=== PATIENT | male | born 1960 | race African-American/Black ===

== ENCOUNTER 2018-04-26 18:18 | Emergency (ER) | payer MEDICAID, OTHER ==
[~2018-04-26] VITALS: Ht 185.4 cm; Wt 91.0 kg
[2018-04-26 21:07] LABS: BASOPHILS % 1.6 % (0.0-2.0); EOSINOPHILS % 1.3 % (0.0-5.0); HEMATOCRIT. 30.9 % (42.0-52.0); HEMOGLOBIN. 9.8 g/dL (14.0-18.0); MEAN CORPUSCULAR HEMOGLOBIN 25.6 pg (28.0-32.0); MEAN CORPUSCULAR VOLUME 80.6 fL (80.0-94.0); MEAN PLATELET VOLUME 8.5 fl (7.4-10.4); MONOCYTES % 8.3 % (2.0-8.0); NEUTROPHILS % 52.8 % (40.0-76.0); PLATELET 112 x1000/uL (130-400); RED BLOOD CELL COUNT 3.83 mill/uL (4.7-6.1); RED CELL DISTRIBUTION WIDTH 16.8 % (11.6-14.6)
[2018-04-26 21:11] LABS: CHLORIDE 109 mEq/L (98-107)
[2018-04-26 21:13] LABS: INR 1.1; PARTIAL THROMBOPLASTIN TIME 29.6 sec (23.4-31.0)
[2018-04-26 21:25] LABS: ETHANOL BLOOD 305 mg/dL
[2018-04-27 02:45] LABS: CLARITY URINE CLEAR (CLEAR); COLOR URINE YELLOW (YELLOW); KETONES URINE TRACE (NEGATIVE); LEUKOCYTE ESTERASE URINE NEGATIVE (NEGATIVE); NITRITE URINE NEGATIVE (NEGATIVE); OCCULT BLOOD URINE 2+ (NEGATIVE); PROTEIN URINE 3+ (NEGATIVE); SPECIFIC GRAVITY URINE 1.017 (1.005-1.030)
[2018-04-27 03:01] LABS: *AMPHETAMINES SCREEN URINE NEGATIVE (NEGATIVE); *BARBITURATES SCREEN URINE NEGATIVE (NEGATIVE)
[2018-04-27 03:02] LABS: *BENZODIAZEPINES SCREEN URINE NEGATIVE (NEGATIVE); *COCAINE SCREEN URINE NEGATIVE (NEGATIVE); CANNABINOID URINE SCREEN PRESUMTIVE POSITIVE (NEGATIVE); METHADONE URINE SCREEN NEGATIVE (NEGATIVE); OPIATES URINE SCREEN NEGATIVE (NEGATIVE); PHENCYCLIDINE URINE SCREEN NEGATIVE (NEGATIVE)
[2018-04-27] MEDS ORDERED: NITROGLYCERIN OINT 1GM/INCH UDPKT TD ONE (03:45)
[2018-04-27] MEDS ORDERED: ASPIRIN 81MG TABLET PO ONE (03:45)
[2018-04-27] MEDS ORDERED: SODIUM CHLORIDE 0.9% 1,000 ML IV ONE (04:08)
[2018-04-27 04:45] LABS: BASOPHILS % 1.7 % (0.0-2.0); EOSINOPHILS % 1.4 % (0.0-5.0); HEMATOCRIT. 32.2 % (42.0-52.0); HEMOGLOBIN. 10.3 g/dL (14.0-18.0); LYMPHOCYTES % 34.3 % (20.0-50.0); MEAN CORPUSCULAR HEMOGLOBIN 25.6 pg (28.0-32.0); MEAN CORPUSCULAR VOLUME 80.2 fL (80.0-94.0); MEAN PLATELET VOLUME 8.9 fl (7.4-10.4); MONOCYTES % 5.7 % (2.0-8.0); NEUTROPHILS % 56.9 % (40.0-76.0); PLATELET 103 x1000/uL (130-400); RED BLOOD CELL COUNT 4.02 mill/uL (4.7-6.1); RED CELL DISTRIBUTION WIDTH 16.5 % (11.6-14.6)
[2018-04-27 04:53] LABS: CHLORIDE 104 mEq/L (98-107)
[2018-04-27 04:57] LABS: ETHANOL BLOOD 156 mg/dL
[2018-04-27 05:01] LABS: INR 1.1; PROTHROMBIN TIME 11.2 sec (9.4-11.6)
[2018-04-27 06:39] VITALS: BP 150/60
== END 2018-04-27 04:43 | disposition home or self-care (01) ==
LOC: ER 18:18
DX: T51.91XA Toxic effect of unspecified alcohol, accidental (unintentional), initial encounter (principal); I11.0 Hypertensive heart disease with heart failure; I50.9 Heart failure, unspecified; E11.9 Type 2 diabetes mellitus without complications; F17.200 Nicotine dependence, unspecified, uncomplicated; F12.10 Cannabis abuse, uncomplicated; Z86.73 Personal history of transient ischemic attack (TIA), and cerebral infarction without residual deficits; Z79.899 Other long term (current) drug therapy; Y92.89 Other specified places as the place of occurrence of the external cause
CPT/HCPCS: 36415; 71045; 74176; 80053; 80305; 81003; 83605; 83690; 83880; 84484; 85025; 85610; 85730; 87040; 87086; 93005; 93970; 99285; G0482

== ENCOUNTER 2019-10-15 17:03 | Inpatient (IN) | payer MEDICAID ==
[~2019-10-15] VITALS: Ht 177.8 cm; Wt 94.9 kg
[2019-10-15] VITALS (12 sets, daily range): BP systolic 82–138; BP diastolic 57–98
[2019-10-15] MEDS ORDERED: ONDANSETRON HCL 4MG/2ML INJ IV STA (17:36)
[2019-10-15] MEDS ORDERED: SODIUM CHLORIDE 0.9% 1,000 ML IV ONE (17:36)
[2019-10-15] MEDS ORDERED: LEVETIRACETAM 1000MG/100ML 100 ML IV ONE (17:45)
[2019-10-15 18:04] LABS: BG DEOXYHEMOGLOBIN 6.6 % (0.0-5.0); BG FRACTION INSPIRED OXYGEN 100; BG HCO3 ACT 21.5 mmol/L (22.0-26.0); BG METHEMOGLOBIN 0.2 % (0.0-1.5); BG OXYGEN SATURATION 93.3 % (92.0-98.5); BG OXYHEMOGLOBIN 91.2 % (94.0-97.0); BG PCO2 40.7 mmHg (35.0-45.0); BG PH 7.341 (7.350-7.450); BG PO2 73.1 mmHg (75.0-100.0); BG SAMPLE SITE LEFT BRACHIAL; BG TOTAL HEMOGLOBIN 11.8 g/dL (12.0-18.0); BG VENT MODE MASK - NRB
[2019-10-15 18:13] LABS: BASOPHILS % 0.5 % (0.0-2.0); EOSINOPHILS % 0.2 % (0.0-5.0); HEMOGLOBIN. 11.2 g/dL (14.0-18.0); LYMPHOCYTES % 9.4 % (20.0-50.0); MEAN CORPUSCULAR HEMOGLOBIN 26.8 pg (28.0-32.0); MEAN CORPUSCULAR VOLUME 84.1 fL (80.0-94.0); MEAN PLATELET VOLUME 9.3 fl (7.4-10.4); MONOCYTES % 4.7 % (2.0-8.0); NEUTROPHILS % 85.2 % (40.0-76.0); PLATELET 93 x1000/uL (130-400); RED BLOOD CELL COUNT 4.16 mill/uL (4.7-6.1)
[2019-10-15] MEDS ORDERED: LORAZEPAM 2MG/ML CPJ IV ONE ×3 (18:15→20:15)
[2019-10-15] MEDS ORDERED: PROPOFOL 10MG/ML 100ML 100 ML IV SCH (18:15)
[2019-10-15] MEDS ORDERED: LORAZEPAM 2MG/ML CPJ ONE ×4 (18:17→20:21)
[2019-10-15 18:20] LABS: CHLORIDE 107 mEq/L (98-107)
[2019-10-15 18:25] LABS: ETHANOL BLOOD < 10 mg/dL
[2019-10-15] MEDS ORDERED: MIDAZOLAM HCL 50 MG in DEXTROSE 5% WATER 40 ML IV ONE (18:45)
[2019-10-15] MEDS ORDERED: MIDAZOLAM HCL 50 MG in DEXTROSE 5% WATER 40 ML IV PRN (19:00)
[2019-10-15 19:09] LABS: CLARITY URINE CLEAR (CLEAR); COLOR URINE YELLOW (YELLOW); KETONES URINE TRACE (NEGATIVE); LEUKOCYTE ESTERASE URINE TRACE (NEGATIVE); NITRITE URINE NEGATIVE (NEGATIVE); OCCULT BLOOD URINE 2+ (NEGATIVE); PH URINE 6.5 (4.5-8.0); PROTEIN URINE 3+ (NEGATIVE); SPECIFIC GRAVITY URINE 1.017 (1.005-1.030)
[2019-10-15 19:18] LABS: *AMPHETAMINES SCREEN URINE NEGATIVE (NEGATIVE); *BARBITURATES SCREEN URINE NEGATIVE (NEGATIVE); *BENZODIAZEPINES SCREEN URINE PRESUMTIVE POSITIVE (NEGATIVE); *COCAINE SCREEN URINE NEGATIVE (NEGATIVE); METHADONE URINE SCREEN NEGATIVE (NEGATIVE)
[2019-10-15 19:19] LABS: CANNABINOID URINE SCREEN PRESUMTIVE POSITIVE (NEGATIVE); OPIATES URINE SCREEN NEGATIVE (NEGATIVE); PHENCYCLIDINE URINE SCREEN NEGATIVE (NEGATIVE)
[2019-10-15] MEDS ORDERED: FENTANYL CITRATE/PF 1,000 MCG in SODIUM CHLORIDE 0.9% 80 ML IV PRN ×2 (19:45→20:00)
[2019-10-15 20:58] LABS: BG BASE EXCESS -1.9 mmol/L (-2.0-2.0); BG CARBOXYHEMOGLOBIN 0.7 % (0.5-1.5); BG DEOXYHEMOGLOBIN 4.8 % (0.0-5.0); BG FRACTION INSPIRED OXYGEN 100; BG HCO3 ACT 23.5 mmol/L (22.0-26.0); BG METHEMOGLOBIN 0.2 % (0.0-1.5); BG OXYGEN SATURATION 95.2 % (92.0-98.5); BG OXYHEMOGLOBIN 94.3 % (94.0-97.0); BG PCO2 42.4 mmHg (35.0-45.0); BG PH 7.362 (7.350-7.450); BG PO2 82.5 mmHg (75.0-100.0); BG SAMPLE SITE RIGHT RADIAL; BG TIDAL VOLUME(mL) 500 mL; BG TOTAL HEMOGLOBIN 12.7 g/dL (12.0-18.0); BG VENT MODE VENT - A/C; BG VENT RATE 16 set
[2019-10-15] MEDS ORDERED: ACETAMINOPHEN 650MG/20.3ML UDC PO PRN (21:45)
[2019-10-15] MEDS ORDERED: ONDANSETRON HCL 4MG/2ML INJ IV PRN (21:45)
[2019-10-15] MEDS ORDERED: DEXTROSE 50% WATER 50ML SYRINGE IV PRN (21:45)
[2019-10-15] MEDS: DEXT 5%/0.9% NACL 1,000 ML IV SCH (22:59)
[2019-10-15] MEDS: PIPERACILLIN/TAZOBACTAM 3.375 G in DEXT 5% WATER 100 ML IV SCH (23:00)
[2019-10-15] MEDS ORDERED: LEVETIRACETAM 1,000 MG in SODIUM CHLORIDE 0.9% 100 ML IV SCH (23:00)
[2019-10-15] MEDS: BLOOD SUGAR DIAGNOSTIC STRIP TEST SCH (23:18)
[2019-10-15] MEDS ORDERED: IOHEXOL-350 100 ML BOTTLE ONE (23:25)
[2019-10-16] VITALS (96 sets, daily range): BP systolic 84–128; BP diastolic 54–84
[2019-10-16] MEDS: PHENYLEPHRINE 40 MG in DEXT 5% WATER 246 ML IV PRN (00:34)
[2019-10-16] MEDS: PROPOFOL 10MG/ML 100ML 100 ML IV PRN ×2 (00:35→04:49)
[2019-10-16] MEDS: MIDAZOLAM HCL 100 MG in DEXT 5% WATER 80 ML IV SCH (04:49)
[2019-10-16 04:57] LABS: BASOPHILS % 0.3 % (0.0-2.0); EOSINOPHILS % 0.1 % (0.0-5.0); HEMATOCRIT. 33.1 % (42.0-52.0); HEMOGLOBIN. 10.5 g/dL (14.0-18.0); MEAN CORPUSCULAR HEMOGLOBIN 26.6 pg (28.0-32.0); MEAN CORPUSCULAR VOLUME 83.8 fL (80.0-94.0); MEAN PLATELET VOLUME 9.8 fl (7.4-10.4); MONOCYTES % 5.9 % (2.0-8.0); NEUTROPHILS % 85.7 % (40.0-76.0); PLATELET 95 x1000/uL (130-400); RED BLOOD CELL COUNT 3.95 mill/uL (4.7-6.1); RED CELL DISTRIBUTION WIDTH 17.5 % (11.6-14.6)
[2019-10-16] MEDS: DEXT 5%/0.9% NACL 1,000 ML IV SCH ×2 (06:41→14:00)
[2019-10-16] MEDS: PIPERACILLIN/TAZOBACTAM 3.375 G in DEXT 5% WATER 100 ML IV SCH ×3 (06:41→21:47)
[2019-10-16] MEDS: BLOOD SUGAR DIAGNOSTIC STRIP TEST SCH ×4 (06:42→23:45)
[2019-10-16] MEDS: INSULIN LISPRO 100 UNITS/ML SUBCUT SCH ×4 (07:30→23:45)
[2019-10-16 07:38] LABS: BG BASE EXCESS -1.4 mmol/L (-2.0-2.0); BG CARBOXYHEMOGLOBIN 0.1 % (0.5-1.5); BG DEOXYHEMOGLOBIN 0.7 % (0.0-5.0); BG HCO3 ACT 23.5 mmol/L (22.0-26.0); BG METHEMOGLOBIN 0.1 % (0.0-1.5); BG OXYGEN SATURATION 99.3 % (92.0-98.5); BG OXYHEMOGLOBIN 99.1 % (94.0-97.0); BG PCO2 40.5 mmHg (35.0-45.0); BG PH 7.382 (7.350-7.450); BG PO2 233.7 mmHg (75.0-100.0); BG SAMPLE SITE RIGHT BRACHIAL; BG TIDAL VOLUME(mL) 500 mL; BG TOTAL HEMOGLOBIN 11.4 g/dL (12.0-18.0); BG VENT MODE VENT - A/C; BG VENT RATE 16 set
[2019-10-16] MEDS ORDERED: INSULIN LISPRO 100 UNITS/ML SUBCUT SCH (08:20)
[2019-10-16] MEDS: LEVETIRACETAM 500MG PREMIX 100 ML IV SCH ×2 (09:00→20:48)
[2019-10-16] MEDS: FENTANYL CITRATE/PF 1,000 MCG in SODIUM CHLORIDE 0.9% 80 ML IV PRN ×2 (12:00→21:08)
[2019-10-16] MEDS ORDERED: FOLIC ACID 1 MG, THIAMINE HCL 100 MG, MVI, ADULT NO.1 10 ML in DEXTROSE 5% WATER 1,000 ML IV ONE ×4 (15:00)
[2019-10-17] VITALS (92 sets, daily range): BP systolic 94–151; BP diastolic 57–109
[2019-10-17] MEDS: DEXT 5%/0.9% NACL 1,000 ML IV SCH ×2 (03:42→17:00)
[2019-10-17] MEDS: BLOOD SUGAR DIAGNOSTIC STRIP TEST SCH ×4 (05:22→23:27)
[2019-10-17] MEDS: INSULIN LISPRO 100 UNITS/ML SUBCUT SCH ×4 (05:22→23:28)
[2019-10-17] MEDS: PIPERACILLIN/TAZOBACTAM 3.375 G in DEXT 5% WATER 100 ML IV SCH ×3 (05:45→22:13)
[2019-10-17] MEDS: MIDAZOLAM HCL 100 MG in DEXT 5% WATER 80 ML IV SCH ×2 (07:03→16:50)
[2019-10-17] MEDS: LEVETIRACETAM 500MG PREMIX 100 ML IV SCH (08:09)
[2019-10-17] MEDS: MULTIVITAMINS,THER W-MINERALS TABLET PO SCH (12:15)
[2019-10-17] MEDS: FENTANYL CITRATE/PF 1,000 MCG in SODIUM CHLORIDE 0.9% 80 ML IV PRN ×2 (12:29→22:46)
[2019-10-17] MEDS: FOLIC ACID 1MG TABLET PO SCH (13:43)
[2019-10-17] MEDS: THIAMINE HCL 100MG TABLET PO SCH (13:43)
[2019-10-17] MEDS: LEVETIRACETAM 1,000 MG in SODIUM CHLORIDE 0.9% 100 ML IV SCH (21:02)
[2019-10-18] VITALS (106 sets, daily range): BP systolic 102–236; BP diastolic 39–179
[2019-10-18] MEDS: MIDAZOLAM HCL 100 MG in DEXT 5% WATER 80 ML IV SCH ×2 (02:44→18:55)
[2019-10-18] MEDS: DEXT 5%/0.9% NACL 1,000 ML IV SCH ×3 (04:59→19:38)
[2019-10-18] MEDS: BLOOD SUGAR DIAGNOSTIC STRIP TEST SCH ×3 (05:00→18:00)
[2019-10-18] MEDS: PIPERACILLIN/TAZOBACTAM 3.375 G in DEXT 5% WATER 100 ML IV SCH ×3 (05:00→22:30)
[2019-10-18] MEDS: INSULIN LISPRO 100 UNITS/ML SUBCUT SCH ×3 (05:11→18:00)
[2019-10-18 06:27] LABS: BASOPHILS % 0.4 % (0.0-2.0); EOSINOPHILS % 1.9 % (0.0-5.0); HEMATOCRIT. 29.4 % (42.0-52.0); HEMOGLOBIN. 9.2 g/dL (14.0-18.0); LYMPHOCYTES % 11.9 % (20.0-50.0); MEAN CORPUSCULAR HEMOGLOBIN 26.9 pg (28.0-32.0); MEAN CORPUSCULAR VOLUME 85.5 fL (80.0-94.0); MEAN PLATELET VOLUME 9.7 fl (7.4-10.4); MONOCYTES % 4.6 % (2.0-8.0); NEUTROPHILS % 81.2 % (40.0-76.0); PLATELET 69 x1000/uL (130-400); RED BLOOD CELL COUNT 3.44 mill/uL (4.7-6.1); RED CELL DISTRIBUTION WIDTH 17.4 % (11.6-14.6)
[2019-10-18 06:49] LABS: CHLORIDE 111 mEq/L (98-107)
[2019-10-18] MEDS: FENTANYL CITRATE/PF 1,000 MCG in SODIUM CHLORIDE 0.9% 80 ML IV PRN ×2 (06:55→23:55)
[2019-10-18] MEDS: FOLIC ACID 1MG TABLET PO SCH (09:02)
[2019-10-18] MEDS: THIAMINE HCL 100MG TABLET PO SCH (09:03)
[2019-10-18] MEDS: LEVETIRACETAM 1,000 MG in SODIUM CHLORIDE 0.9% 100 ML IV SCH ×2 (09:03→20:09)
[2019-10-18] MEDS: MULTIVITAMINS,THER W-MINERALS TABLET PO SCH (09:03)
[2019-10-18] MEDS: PANTOPRAZOLE SODIUM 40 MG/VIAL IV SCH (09:03)
[2019-10-18 10:44] LABS: BG BASE EXCESS -0.3 mmol/L (-2.0-2.0); BG CARBOXYHEMOGLOBIN 0.5 % (0.5-1.5); BG FRACTION INSPIRED OXYGEN 60; BG HCO3 ACT 25.2 mmol/L (22.0-26.0); BG METHEMOGLOBIN 0.4 % (0.0-1.5); BG OXYHEMOGLOBIN 98.1 % (94.0-97.0); BG PCO2 44.6 mmHg (35.0-45.0); BG PO2 154.1 mmHg (75.0-100.0); BG SAMPLE SITE RIGHT RADIAL; BG TIDAL VOLUME(mL) 500 mL; BG TOTAL HEMOGLOBIN 11.2 g/dL (12.0-18.0); BG VENT MODE VENT - A/C; BG VENT RATE 16 set
[2019-10-18 16:00] LABS: BG BASE EXCESS -2.2 mmol/L (-2.0-2.0); BG CARBOXYHEMOGLOBIN 0.4 % (0.5-1.5); BG DEOXYHEMOGLOBIN 5.1 % (0.0-5.0); BG FRACTION INSPIRED OXYGEN 50; BG HCO3 ACT 23.3 mmol/L (22.0-26.0); BG METHEMOGLOBIN 0.2 % (0.0-1.5); BG OXYGEN SATURATION 94.9 % (92.0-98.5); BG OXYHEMOGLOBIN 94.3 % (94.0-97.0); BG PCO2 42.5 mmHg (35.0-45.0); BG PH 7.356 (7.350-7.450); BG PO2 79.3 mmHg (75.0-100.0); BG PRESSURE SUPPORT 10; BG SAMPLE SITE RIGHT RADIAL; BG TIDAL VOLUME(mL) 500 mL; BG TOTAL HEMOGLOBIN 10.3 g/dL (12.0-18.0); BG VENT MODE VENT - SIMV; BG VENT RATE 8 set
[2019-10-18 17:20] LABS: BG BASE EXCESS -0.8 mmol/L (-2.0-2.0); BG CARBOXYHEMOGLOBIN 0.2 % (0.5-1.5); BG FRACTION INSPIRED OXYGEN 50; BG HCO3 ACT 24.6 mmol/L (22.0-26.0); BG METHEMOGLOBIN 0.3 % (0.0-1.5); BG OXYHEMOGLOBIN 91.5 % (94.0-97.0); BG PCO2 44.1 mmHg (35.0-45.0); BG PH 7.365 (7.350-7.450); BG PO2 65.5 mmHg (75.0-100.0); BG PRESSURE SUPPORT 10; BG SAMPLE SITE RIGHT RADIAL; BG TOTAL HEMOGLOBIN 10.5 g/dL (12.0-18.0); BG VENT MODE VENT - CPAP
[2019-10-18] MEDS ORDERED: HALOPERIDOL LACTATE 5MG/ML VIAL IM PRN (20:45)
[2019-10-18] MEDS ORDERED: SUCCINYLCHOLINE CHLORIDE 200MG/10ML IV ONE (21:00)
[2019-10-18] MEDS ORDERED: ETOMIDATE 2MG/ML 10ML VIAL IV ONE (21:00)
[2019-10-18] MEDS ORDERED: SODIUM CHLORIDE 0.9% 10ML VIAL ONE (21:00)
[2019-10-18] MEDS: PHENYLEPHRINE 40 MG in DEXT 5% WATER 246 ML IV PRN (22:51)
[2019-10-18 22:54] LABS: HEMATOCRIT 32.3 % (42.0-52.0); HEMOGLOBIN 9.9 g/dL (14.0-18.0); MEAN CORPUSCULAR HEMOGLOBIN 26.7 pg (28.0-32.0); MEAN CORPUSCULAR VOLUME 87.2 fL (80.0-94.0); PLATELET 87 x1000/uL (130-400); RED CELL DISTRIBUTION WIDTH 17.4 % (11.6-14.6)
[2019-10-18 22:58] LABS: CHLORIDE 109 mEq/L (98-107)
[2019-10-18 22:59] LABS: BG BASE EXCESS -5.3 mmol/L (-2.0-2.0); BG CARBOXYHEMOGLOBIN 0.4 % (0.5-1.5); BG DEOXYHEMOGLOBIN 12.5 % (0.0-5.0); BG FRACTION INSPIRED OXYGEN 100; BG HCO3 ACT 21.5 mmol/L (22.0-26.0); BG METHEMOGLOBIN 0.2 % (0.0-1.5); BG OXYGEN SATURATION 87.4 % (92.0-98.5); BG OXYHEMOGLOBIN 86.9 % (94.0-97.0); BG PCO2 47.3 mmHg (35.0-45.0); BG PEEP (cmH2O) 0 cmH2O; BG PH 7.276 (7.350-7.450); BG PO2 59.5 mmHg (75.0-100.0); BG SAMPLE SITE RIGHT RADIAL; BG TIDAL VOLUME(mL) 500 mL; BG TOTAL HEMOGLOBIN 11.6 g/dL (12.0-18.0); BG VENT MODE VENT - A/C; BG VENT RATE 16 set
[2019-10-19] VITALS (77 sets, daily range): BP systolic 89–141; BP diastolic 42–96
[2019-10-19] MEDS: INSULIN LISPRO 100 UNITS/ML SUBCUT SCH ×5 (01:16→18:49)
[2019-10-19] MEDS: MIDAZOLAM HCL 100 MG in DEXT 5% WATER 80 ML IV SCH ×2 (04:19→14:24)
[2019-10-19] MEDS: PIPERACILLIN/TAZOBACTAM 3.375 G in DEXT 5% WATER 100 ML IV SCH (05:49)
[2019-10-19] MEDS: BLOOD SUGAR DIAGNOSTIC STRIP TEST SCH ×4 (05:49→18:50)
[2019-10-19 06:31] LABS: HEMATOCRIT. 30.7 % (42.0-52.0); HEMOGLOBIN. 9.6 g/dL (14.0-18.0); MEAN CORPUSCULAR HEMOGLOBIN 26.6 pg (28.0-32.0); MEAN CORPUSCULAR VOLUME 85.2 fL (80.0-94.0); MEAN PLATELET VOLUME 9.9 fl (7.4-10.4); PLATELET 83 x1000/uL (130-400); RED CELL DISTRIBUTION WIDTH 17.3 % (11.6-14.6)
[2019-10-19 06:32] LABS: CHLORIDE 112 mEq/L (98-107)
[2019-10-19 08:42] LABS: BG BASE EXCESS -1.8 mmol/L (-2.0-2.0); BG CARBOXYHEMOGLOBIN 0.4 % (0.5-1.5); BG DEOXYHEMOGLOBIN 12.2 % (0.0-5.0); BG FRACTION INSPIRED OXYGEN 100; BG HCO3 ACT 23.9 mmol/L (22.0-26.0); BG METHEMOGLOBIN 0.3 % (0.0-1.5); BG OXYGEN SATURATION 87.7 % (92.0-98.5); BG OXYHEMOGLOBIN 87.1 % (94.0-97.0); BG PCO2 44.4 mmHg (35.0-45.0); BG PH 7.349 (7.350-7.450); BG PO2 55.4 mmHg (75.0-100.0); BG SAMPLE SITE RIGHT RADIAL; BG TIDAL VOLUME(mL) 500 mL; BG TOTAL HEMOGLOBIN 10.6 g/dL (12.0-18.0); BG VENT MODE VENT - A/C; BG VENT RATE 16 set
[2019-10-19] MEDS: MULTIVITAMINS,THER W-MINERALS TABLET PO SCH (09:00)
[2019-10-19] MEDS: FOLIC ACID 1MG TABLET PO SCH (09:00)
[2019-10-19] MEDS: THIAMINE HCL 100MG TABLET PO SCH (09:00)
[2019-10-19] MEDS: LEVETIRACETAM 1,000 MG in SODIUM CHLORIDE 0.9% 100 ML IV SCH ×2 (09:17→20:42)
[2019-10-19] MEDS: PANTOPRAZOLE SODIUM 40 MG/VIAL IV SCH (09:17)
[2019-10-19] MEDS ORDERED: METHYLPREDNISOLONE SOD SUCC 125 MG/2 ML VIAL IV ONE (12:00)
[2019-10-19] MEDS: PIPERACILLIN/TAZOBACTAM 2.25 G in DEXTROSE 5% WATER 50 ML IV SCH ×2 (12:18→18:49)
[2019-10-19] MEDS: PHENYLEPHRINE 40 MG in DEXT 5% WATER 246 ML IV PRN (12:19)
[2019-10-19] MEDS: DEXT 5%/0.9% NACL 1,000 ML IV SCH (12:32)
[2019-10-19 12:59] LABS: PLATELET ESTIMATE DECREASED
[2019-10-19] MEDS: FENTANYL CITRATE/PF 1,000 MCG in SODIUM CHLORIDE 0.9% 80 ML IV PRN (14:10)
[2019-10-19] MEDS: METHYLPREDNISOLONE SOD SUCC 125 MG/2 ML VIAL IV SCH (20:42)
[2019-10-20] VITALS (90 sets, daily range): BP systolic 99–176; BP diastolic 61–98
[2019-10-20] MEDS: INSULIN LISPRO 100 UNITS/ML SUBCUT SCH ×4 (00:40→17:39)
[2019-10-20] MEDS: BLOOD SUGAR DIAGNOSTIC STRIP TEST SCH ×4 (00:41→17:05)
[2019-10-20] MEDS: PIPERACILLIN/TAZOBACTAM 2.25 G in DEXTROSE 5% WATER 50 ML IV SCH ×4 (00:41→17:38)
[2019-10-20] MEDS: DEXT 5%/0.9% NACL 1,000 ML IV SCH ×2 (04:19→20:55)
[2019-10-20] MEDS: METHYLPREDNISOLONE SOD SUCC 125 MG/2 ML VIAL IV SCH ×3 (05:54→21:03)
[2019-10-20 06:52] LABS: BASOPHILS % 0.1 % (0.0-2.0); HEMATOCRIT. 29.2 % (42.0-52.0); HEMOGLOBIN. 9.2 g/dL (14.0-18.0); LYMPHOCYTES % 7.8 % (20.0-50.0); MEAN CORPUSCULAR HEMOGLOBIN 26.4 pg (28.0-32.0); MEAN PLATELET VOLUME 9.7 fl (7.4-10.4); MONOCYTES % 11.8 % (2.0-8.0); NEUTROPHILS % 80.3 % (40.0-76.0); PLATELET 99 x1000/uL (130-400); RED BLOOD CELL COUNT 3.48 mill/uL (4.7-6.1); RED CELL DISTRIBUTION WIDTH 17.2 % (11.6-14.6)
[2019-10-20 06:59] LABS: CHLORIDE 113 mEq/L (98-107)
[2019-10-20 07:07] LABS: LDL CHOLESTEROL 61 mg/dL (5-100)
[2019-10-20 07:10] LABS: CREATINE KINASE 85 IU/L (39-308)
[2019-10-20 07:11] LABS: HDL CHOLESTEROL 34 mg/dL (40-59)
[2019-10-20 07:13] LABS: CREATINE KINASE MB FRACTION < 1.0 ng/mL (0.5-3.6)
[2019-10-20 08:25] LABS: BG BASE EXCESS -3.9 mmol/L (-2.0-2.0); BG CARBOXYHEMOGLOBIN 0.3 % (0.5-1.5); BG DEOXYHEMOGLOBIN 0.9 % (0.0-5.0); BG FRACTION INSPIRED OXYGEN 100; BG HCO3 ACT 21.1 mmol/L (22.0-26.0); BG METHEMOGLOBIN 0.2 % (0.0-1.5); BG OXYGEN SATURATION 99.1 % (92.0-98.5); BG OXYHEMOGLOBIN 98.6 % (94.0-97.0); BG PCO2 37.9 mmHg (35.0-45.0); BG PH 7.363 (7.350-7.450); BG PO2 189.1 mmHg (75.0-100.0); BG SAMPLE SITE RIGHT RADIAL; BG TIDAL VOLUME(mL) 500 mL; BG TOTAL HEMOGLOBIN 10.4 g/dL (12.0-18.0); BG VENT MODE VENT - A/C; BG VENT RATE 16 set
[2019-10-20] MEDS: THIAMINE HCL 100MG TABLET PO SCH (09:00)
[2019-10-20] MEDS: FOLIC ACID 1MG TABLET PO SCH (09:00)
[2019-10-20] MEDS: MULTIVITAMINS,THER W-MINERALS TABLET PO SCH (09:00)
[2019-10-20] MEDS: LEVETIRACETAM 1,000 MG in SODIUM CHLORIDE 0.9% 100 ML IV SCH ×2 (09:15→20:48)
[2019-10-20] MEDS: PANTOPRAZOLE SODIUM 40 MG/VIAL IV SCH (09:15)
[2019-10-20] MEDS: MIDAZOLAM HCL 100 MG in DEXT 5% WATER 80 ML IV SCH (09:16)
[2019-10-20] MEDS: FENTANYL CITRATE/PF 1,000 MCG in SODIUM CHLORIDE 0.9% 80 ML IV PRN (09:18)
[2019-10-21] VITALS (39 sets, daily range): BP systolic 96–157; BP diastolic 65–114
[2019-10-21] MEDS: PIPERACILLIN/TAZOBACTAM 2.25 G in DEXTROSE 5% WATER 50 ML IV SCH ×4 (00:36→17:55)
[2019-10-21] MEDS: BLOOD SUGAR DIAGNOSTIC STRIP TEST SCH ×4 (00:37→17:51)
[2019-10-21 05:41] LABS: MEAN CORPUSCULAR HEMOGLOBIN 26.3 pg (28.0-32.0); MEAN CORPUSCULAR VOLUME 83.8 fL (80.0-94.0); MEAN PLATELET VOLUME 10.4 fl (7.4-10.4); PLATELET 125 x1000/uL (130-400); RED BLOOD CELL COUNT 3.81 mill/uL (4.7-6.1); RED CELL DISTRIBUTION WIDTH 17.7 % (11.6-14.6)
[2019-10-21] MEDS: METHYLPREDNISOLONE SOD SUCC 125 MG/2 ML VIAL IV SCH ×3 (05:56→21:40)
[2019-10-21] MEDS: INSULIN LISPRO 100 UNITS/ML SUBCUT SCH ×5 (05:57→17:59)
[2019-10-21] MEDS: LEVETIRACETAM 1,000 MG in SODIUM CHLORIDE 0.9% 100 ML IV SCH (09:00)
[2019-10-21] MEDS: FOLIC ACID 1MG TABLET PO SCH (09:09)
[2019-10-21] MEDS: THIAMINE HCL 100MG TABLET PO SCH (09:09)
[2019-10-21] MEDS: PANTOPRAZOLE SODIUM 40 MG/VIAL IV SCH (09:09)
[2019-10-21] MEDS: MULTIVITAMINS,THER W-MINERALS TABLET PO SCH (09:09)
[2019-10-21] MEDS: DEXT 5%/0.9% NACL 1,000 ML IV SCH (09:19)
[2019-10-21] MEDS ORDERED: LEVETIRACETAM 1000MG/100ML 100 ML IV SCH (11:00)
[2019-10-21] MEDS ORDERED: DEXT 5%/0.45% NACL KCL 20MEQ/L 1,000 ML IV SCH (11:00)
[2019-10-21 11:41] LABS: BG BASE EXCESS -3.2 mmol/L (-2.0-2.0); BG CARBOXYHEMOGLOBIN 0.2 % (0.5-1.5); BG DEOXYHEMOGLOBIN 1.3 % (0.0-5.0); BG FRACTION INSPIRED OXYGEN 100; BG HCO3 ACT 21.9 mmol/L (22.0-26.0); BG METHEMOGLOBIN 0.1 % (0.0-1.5); BG OXYGEN SATURATION 98.7 % (92.0-98.5); BG OXYHEMOGLOBIN 98.4 % (94.0-97.0); BG PCO2 39.5 mmHg (35.0-45.0); BG PH 7.362 (7.350-7.450); BG PO2 188.5 mmHg (75.0-100.0); BG SAMPLE SITE RIGHT RADIAL; BG TIDAL VOLUME(mL) 500 mL; BG VENT MODE VENT - A/C; BG VENT RATE 16 set
[2019-10-21] MEDS ORDERED: SODIUM CHLORIDE 0.9% IV PRN ×3 (12:15→12:30)
[2019-10-21] MEDS ORDERED: MORPHINE SULFATE 2 MG/ML CPJ (NOT FOR IM USE) IV PRN (12:15)
[2019-10-21] MEDS ORDERED: FENTANYL CITRATE IV PRN ×3 (12:15→12:30)
[2019-10-21 13:31] LABS: PLATELET ESTIMATE SLIGHTLY DECREASED
[2019-10-21] MEDS: MIDAZOLAM HCL 100 MG in DEXT 5% WATER 80 ML IV PRN (13:33)
[2019-10-21] MEDS: SODIUM CHLORIDE 0.9% IV PRN (14:18)
[2019-10-21] MEDS: FENTANYL CITRATE IV PRN (14:18)
[2019-10-21] MEDS: LEVETIRACETAM 1000MG/100ML 100 ML IV SCH (21:40)
[2019-10-22] VITALS (49 sets, daily range): BP systolic 123–176; BP diastolic 65–116
[2019-10-22] MEDS: BLOOD SUGAR DIAGNOSTIC STRIP TEST SCH ×4 (00:18→17:56)
[2019-10-22] MEDS: PIPERACILLIN/TAZOBACTAM 2.25 G in DEXTROSE 5% WATER 50 ML IV SCH ×4 (00:23→17:30)
[2019-10-22] MEDS: INSULIN LISPRO 100 UNITS/ML SUBCUT SCH ×4 (00:27→18:01)
[2019-10-22] MEDS: HYDRALAZINE 20MG/ML VIAL IV PRN (03:55)
[2019-10-22] MEDS: METHYLPREDNISOLONE SOD SUCC 125 MG/2 ML VIAL IV SCH ×3 (05:52→21:14)
[2019-10-22 06:16] LABS: HEMATOCRIT. 34.5 % (42.0-52.0); HEMOGLOBIN. 10.7 g/dL (14.0-18.0); MEAN CORPUSCULAR HEMOGLOBIN 26.1 pg (28.0-32.0); MEAN CORPUSCULAR VOLUME 83.8 fL (80.0-94.0); MEAN PLATELET VOLUME 10.5 fl (7.4-10.4); PLATELET 168 x1000/uL (130-400); RED BLOOD CELL COUNT 4.12 mill/uL (4.7-6.1); RED CELL DISTRIBUTION WIDTH 17.8 % (11.6-14.6)
[2019-10-22 06:33] LABS: CHLORIDE 118 mEq/L (98-107)
[2019-10-22 07:55] LABS: BG BASE EXCESS -4.4 mmol/L (-2.0-2.0); BG CARBOXYHEMOGLOBIN 0.3 % (0.5-1.5); BG DEOXYHEMOGLOBIN 0.5 % (0.0-5.0); BG HCO3 ACT 21.3 mmol/L (22.0-26.0); BG METHEMOGLOBIN 0.4 % (0.0-1.5); BG OXYGEN SATURATION 99.5 % (92.0-98.5); BG OXYHEMOGLOBIN 98.8 % (94.0-97.0); BG PCO2 41.8 mmHg (35.0-45.0); BG PH 7.326 (7.350-7.450); BG PO2 210.6 mmHg (75.0-100.0); BG SAMPLE SITE RIGHT RADIAL; BG TIDAL VOLUME(mL) 500 mL; BG TOTAL HEMOGLOBIN 11.8 g/dL (12.0-18.0); BG VENT MODE VENT - A/C; BG VENT RATE 16 set
[2019-10-22] MEDS: THIAMINE HCL 100MG TABLET PO SCH (09:37)
[2019-10-22] MEDS: PANTOPRAZOLE SODIUM 40 MG/VIAL IV SCH (09:37)
[2019-10-22] MEDS: MULTIVITAMINS,THER W-MINERALS TABLET PO SCH (09:38)
[2019-10-22] MEDS: FOLIC ACID 1MG TABLET PO SCH (09:38)
[2019-10-22] MEDS: FENTANYL CITRATE IV PRN ×2 (09:39→17:06)
[2019-10-22] MEDS: SODIUM CHLORIDE 0.9% IV PRN ×2 (09:39→17:06)
[2019-10-22] MEDS: LEVETIRACETAM 1000MG/100ML 100 ML IV SCH ×2 (09:51→21:14)
[2019-10-22 10:52] LABS: PLATELET ESTIMATE NORMAL
[2019-10-22] MEDS: MIDAZOLAM HCL 100 MG in DEXT 5% WATER 80 ML IV PRN (13:17)
[2019-10-22] MEDS: ENOXAPARIN 30MG/0.3ML SYR SUBCUT SCH (21:13)
[2019-10-22] MEDS ORDERED: FENTANYL CITRATE/PF 1,000 MCG in SODIUM CHLORIDE 0.9% 80 ML IV PRN (22:54)
[2019-10-23] VITALS (48 sets, daily range): BP systolic 114–166; BP diastolic 59–116
[2019-10-23] MEDS: BLOOD SUGAR DIAGNOSTIC STRIP TEST SCH ×4 (00:50→17:51)
[2019-10-23] MEDS: INSULIN LISPRO 100 UNITS/ML SUBCUT SCH ×4 (00:50→17:52)
[2019-10-23] MEDS: METHYLPREDNISOLONE SOD SUCC 125 MG/2 ML VIAL IV SCH ×3 (05:25→21:24)
[2019-10-23 05:48] LABS: HEMATOCRIT. 33.9 % (42.0-52.0); HEMOGLOBIN. 10.3 g/dL (14.0-18.0); MEAN CORPUSCULAR HEMOGLOBIN 25.8 pg (28.0-32.0); MEAN CORPUSCULAR VOLUME 85.2 fL (80.0-94.0); PLATELET 149 x1000/uL (130-400); RED BLOOD CELL COUNT 3.98 mill/uL (4.7-6.1); RED CELL DISTRIBUTION WIDTH 17.7 % (11.6-14.6)
[2019-10-23] MEDS: LEVETIRACETAM 1000MG/100ML 100 ML IV SCH ×2 (08:45→21:25)
[2019-10-23] MEDS: PANTOPRAZOLE SODIUM 40 MG/VIAL IV SCH (08:45)
[2019-10-23] MEDS: FOLIC ACID 1MG TABLET PO SCH (08:45)
[2019-10-23] MEDS: MULTIVITAMINS,THER W-MINERALS TABLET PO SCH (08:45)
[2019-10-23] MEDS: THIAMINE HCL 100MG TABLET PO SCH (08:45)
[2019-10-23] MEDS: ENOXAPARIN 30MG/0.3ML SYR SUBCUT SCH ×2 (08:46→21:24)
[2019-10-23] MEDS: DEXTROSE 5% WATER 1,000 ML IV SCH (12:39)
[2019-10-23 13:08] LABS: PLATELET ESTIMATE NORMAL
[2019-10-23] MEDS: MIDAZOLAM HCL 100 MG in DEXT 5% WATER 80 ML IV PRN (14:01)
[2019-10-23] MEDS: CEFEPIME 2,000 MG in DEXT 5% WATER 100 ML IV SCH (16:12)
[2019-10-23] MEDS: HYDRALAZINE 20MG/ML VIAL IV PRN (19:56)
[2019-10-24] VITALS (46 sets, daily range): BP systolic 107–179; BP diastolic 70–111
[2019-10-24] MEDS: BLOOD SUGAR DIAGNOSTIC STRIP TEST SCH ×4 (00:05→17:39)
[2019-10-24] MEDS: INSULIN LISPRO 100 UNITS/ML SUBCUT SCH ×4 (00:05→17:41)
[2019-10-24] MEDS: METHYLPREDNISOLONE SOD SUCC 125 MG/2 ML VIAL IV SCH ×2 (05:29→13:54)
[2019-10-24 06:27] LABS: CHLORIDE 119 mEq/L (98-107)
[2019-10-24 06:28] LABS: HEMATOCRIT. 34.9 % (42.0-52.0); HEMOGLOBIN. 10.8 g/dL (14.0-18.0); MEAN CORPUSCULAR HEMOGLOBIN 25.6 pg (28.0-32.0); MEAN CORPUSCULAR VOLUME 82.5 fL (80.0-94.0); MEAN PLATELET VOLUME 10.5 fl (7.4-10.4); PLATELET 195 x1000/uL (130-400); RED BLOOD CELL COUNT 4.24 mill/uL (4.7-6.1); RED CELL DISTRIBUTION WIDTH 17.3 % (11.6-14.6)
[2019-10-24 08:26] LABS: PLATELET ESTIMATE NORMAL
[2019-10-24] MEDS: MULTIVITAMINS,THER W-MINERALS TABLET PO SCH (08:56)
[2019-10-24] MEDS: FOLIC ACID 1MG TABLET PO SCH (08:56)
[2019-10-24] MEDS: THIAMINE HCL 100MG TABLET PO SCH (08:56)
[2019-10-24] MEDS: LEVETIRACETAM 1000MG/100ML 100 ML IV SCH ×2 (08:57→21:00)
[2019-10-24] MEDS: ENOXAPARIN 30MG/0.3ML SYR SUBCUT SCH ×2 (08:57→20:59)
[2019-10-24] MEDS: PANTOPRAZOLE SODIUM 40 MG/VIAL IV SCH (08:57)
[2019-10-24 09:48] LABS: BG BASE EXCESS -2.6 mmol/L (-2.0-2.0); BG FRACTION INSPIRED OXYGEN 40; BG HCO3 ACT 22.5 mmol/L (22.0-26.0); BG METHEMOGLOBIN 0.3 % (0.0-1.5); BG OXYHEMOGLOBIN 95.7 % (94.0-97.0); BG PCO2 40.3 mmHg (35.0-45.0); BG PH 7.365 (7.350-7.450); BG PO2 86.1 mmHg (75.0-100.0); BG SAMPLE SITE RIGHT RADIAL; BG TOTAL HEMOGLOBIN 10.8 g/dL (12.0-18.0); BG VENT MODE VENT - A/C; BG VENT RATE 500 set
[2019-10-24] MEDS: DEXTROSE 5% WATER 1,000 ML IV SCH (11:46)
[2019-10-24] MEDS: AMLODIPINE 2.5MG TABLET NG SCH ×2 (13:54→21:00)
[2019-10-24] MEDS: CEFEPIME 2,000 MG in DEXT 5% WATER 100 ML IV SCH (15:07)
[2019-10-24] MEDS: HYDRALAZINE 20MG/ML VIAL IV PRN (15:08)
[2019-10-25] VITALS (44 sets, daily range): BP systolic 96–177; BP diastolic 49–113
[2019-10-25] MEDS: INSULIN LISPRO 100 UNITS/ML SUBCUT SCH ×4 (05:57→18:16)
[2019-10-25] MEDS: BLOOD SUGAR DIAGNOSTIC STRIP TEST SCH ×4 (05:58→18:17)
[2019-10-25 06:22] LABS: HEMATOCRIT. 35.2 % (42.0-52.0); HEMOGLOBIN. 11.1 g/dL (14.0-18.0); MEAN CORPUSCULAR HEMOGLOBIN 26.1 pg (28.0-32.0); MEAN CORPUSCULAR VOLUME 82.7 fL (80.0-94.0); RED BLOOD CELL COUNT 4.26 mill/uL (4.7-6.1); RED CELL DISTRIBUTION WIDTH 17.6 % (11.6-14.6)
[2019-10-25 06:23] LABS: CHLORIDE 121 mEq/L (98-107)
[2019-10-25 08:04] LABS: PLATELET 185 x1000/uL (130-400)
[2019-10-25 08:07] LABS: PLATELET ESTIMATE NORMAL
[2019-10-25] MEDS ORDERED: LIDOCAINE HCL 1% 20ML VIAL (Pyxis) INJ ONE (08:18)
[2019-10-25] MEDS: MULTIVITAMINS,THER W-MINERALS TABLET PO SCH (09:37)
[2019-10-25] MEDS: THIAMINE HCL 100MG TABLET PO SCH (09:38)
[2019-10-25] MEDS: AMLODIPINE 2.5MG TABLET NG SCH ×2 (09:38→20:43)
[2019-10-25] MEDS: ENOXAPARIN 30MG/0.3ML SYR SUBCUT SCH ×2 (09:38→20:44)
[2019-10-25] MEDS: PANTOPRAZOLE SODIUM 40 MG/VIAL IV SCH (09:38)
[2019-10-25] MEDS: FOLIC ACID 1MG TABLET PO SCH (09:38)
[2019-10-25] MEDS: LEVETIRACETAM 1000MG/100ML 100 ML IV SCH ×2 (09:59→20:43)
[2019-10-25] MEDS: DEXTROSE 5% WATER 1,000 ML IV SCH (11:15)
[2019-10-25] MEDS: METOCLOPRAMIDE HCL 10MG/2ML VIAL IV SCH ×2 (14:15→21:19)
[2019-10-25] MEDS: CEFEPIME 2,000 MG in DEXT 5% WATER 100 ML IV SCH (15:51)
[2019-10-26] VITALS (36 sets, daily range): BP systolic 110–160; BP diastolic 50–101
[2019-10-26] MEDS: BLOOD SUGAR DIAGNOSTIC STRIP TEST SCH ×4 (00:25→17:35)
[2019-10-26] MEDS: INSULIN LISPRO 100 UNITS/ML SUBCUT SCH ×4 (00:28→18:17)
[2019-10-26] MEDS: DEXTROSE 5% WATER 1,000 ML IV SCH ×3 (00:35→21:05)
[2019-10-26 05:10] LABS: PARTIAL THROMBOPLASTIN TIME 31.3 sec (23.4-31.0); PROTHROMBIN TIME 10.7 sec (9.6-11.0)
[2019-10-26] MEDS: METOCLOPRAMIDE HCL 10MG/2ML VIAL IV SCH ×3 (05:47→21:04)
[2019-10-26] MEDS ORDERED: ONDANSETRON HCL 4MG/2ML INJ IV PRN (08:15)
[2019-10-26] MEDS: MULTIVITAMINS,THER W-MINERALS TABLET PO SCH (09:00)
[2019-10-26] MEDS: THIAMINE HCL 100MG TABLET PO SCH (09:00)
[2019-10-26] MEDS: FOLIC ACID 1MG TABLET PO SCH (09:00)
[2019-10-26] MEDS: PANTOPRAZOLE SODIUM 40 MG/VIAL IV SCH (09:12)
[2019-10-26] MEDS: LEVETIRACETAM 1000MG/100ML 100 ML IV SCH ×2 (09:12→21:03)
[2019-10-26] MEDS: ENOXAPARIN 30MG/0.3ML SYR SUBCUT SCH ×2 (09:13→21:04)
[2019-10-26 09:42] LABS: BG BASE EXCESS -1.8 mmol/L (-2.0-2.0); BG CARBOXYHEMOGLOBIN 0.7 % (0.5-1.5); BG DEOXYHEMOGLOBIN 1.8 % (0.0-5.0); BG FRACTION INSPIRED OXYGEN 40; BG METHEMOGLOBIN 0.3 % (0.0-1.5); BG OXYGEN SATURATION 98.2 % (92.0-98.5); BG OXYHEMOGLOBIN 97.2 % (94.0-97.0); BG PCO2 38.7 mmHg (35.0-45.0); BG PH 7.391 (7.350-7.450); BG SAMPLE SITE RIGHT RADIAL; BG TIDAL VOLUME(mL) 500 mL; BG TOTAL HEMOGLOBIN 10.4 g/dL (12.0-18.0); BG VENT MODE VENT - A/C; BG VENT RATE 16 set
[2019-10-26] MEDS: LORAZEPAM 2MG/ML CPJ IV NR ×2 (11:15→12:00)
[2019-10-26 12:08] LABS: HEMATOCRIT. 34.8 % (42.0-52.0); HEMOGLOBIN. 10.7 g/dL (14.0-18.0); MEAN CORPUSCULAR HEMOGLOBIN 25.9 pg (28.0-32.0); MEAN CORPUSCULAR VOLUME 84.3 fL (80.0-94.0); MEAN PLATELET VOLUME 10.5 fl (7.4-10.4); PLATELET 145 x1000/uL (130-400); RED BLOOD CELL COUNT 4.13 mill/uL (4.7-6.1)
[2019-10-26 12:13] LABS: CHLORIDE 117 mEq/L (98-107)
[2019-10-26] MEDS: AMLODIPINE 2.5MG TABLET NG SCH ×2 (12:35→21:04)
[2019-10-26 13:53] LABS: PLATELET ESTIMATE NORMAL
[2019-10-26 16:22] LABS: CHLORIDE 119 mEq/L (98-107)
[2019-10-26] MEDS: CEFEPIME 2,000 MG in DEXT 5% WATER 100 ML IV SCH (16:34)
[2019-10-27] VITALS (35 sets, daily range): BP systolic 115–151; BP diastolic 62–84
[2019-10-27] MEDS: BLOOD SUGAR DIAGNOSTIC STRIP TEST SCH ×4 (00:16→18:40)
[2019-10-27] MEDS: INSULIN LISPRO 100 UNITS/ML SUBCUT SCH ×4 (05:57→18:00)
[2019-10-27] MEDS: METOCLOPRAMIDE HCL 10MG/2ML VIAL IV SCH ×3 (06:09→21:43)
[2019-10-27 07:30] LABS: HEMATOCRIT. 29.2 % (42.0-52.0); HEMOGLOBIN. 9.2 g/dL (14.0-18.0); MEAN CORPUSCULAR HEMOGLOBIN 25.9 pg (28.0-32.0); MEAN CORPUSCULAR VOLUME 82.2 fL (80.0-94.0); MEAN PLATELET VOLUME 11.1 fl (7.4-10.4); PLATELET 141 x1000/uL (130-400); RED BLOOD CELL COUNT 3.56 mill/uL (4.7-6.1); RED CELL DISTRIBUTION WIDTH 17.3 % (11.6-14.6)
[2019-10-27 07:41] LABS: CHLORIDE 117 mEq/L (98-107)
[2019-10-27] MEDS: LEVETIRACETAM 1000MG/100ML 100 ML IV SCH ×2 (09:24→21:43)
[2019-10-27] MEDS: FOLIC ACID 1MG TABLET PO SCH (09:24)
[2019-10-27] MEDS: PANTOPRAZOLE SODIUM 40 MG/VIAL IV SCH (09:24)
[2019-10-27] MEDS: THIAMINE HCL 100MG TABLET PO SCH (09:24)
[2019-10-27] MEDS: AMLODIPINE 2.5MG TABLET NG SCH ×2 (09:24→21:46)
[2019-10-27] MEDS: MULTIVITAMINS,THER W-MINERALS TABLET PO SCH (09:24)
[2019-10-27] MEDS: ENOXAPARIN 30MG/0.3ML SYR SUBCUT SCH ×2 (09:25→21:00)
[2019-10-27] MEDS: DEXTROSE 5% WATER 1,000 ML IV SCH (09:26)
[2019-10-27] MEDS: DEXT 5%/0.2% NACL 1,000 ML IV SCH ×2 (11:26→21:43)
[2019-10-27 12:17] LABS: PLATELET ESTIMATE NORMAL
[2019-10-27] MEDS: CEFEPIME 2,000 MG in DEXT 5% WATER 100 ML IV SCH (15:38)
[2019-10-28] VITALS (46 sets, daily range): BP systolic 117–161; BP diastolic 57–126
[2019-10-28] MEDS: BLOOD SUGAR DIAGNOSTIC STRIP TEST SCH ×4 (00:48→18:23)
[2019-10-28] MEDS: INSULIN LISPRO 100 UNITS/ML SUBCUT SCH ×4 (05:22→18:00)
[2019-10-28 06:06] LABS: BASOPHILS % 0.2 % (0.0-2.0); EOSINOPHILS % 1.1 % (0.0-5.0); HEMATOCRIT. 28.5 % (42.0-52.0); HEMOGLOBIN. 8.8 g/dL (14.0-18.0); MEAN CORPUSCULAR HEMOGLOBIN 25.5 pg (28.0-32.0); MEAN PLATELET VOLUME 11.1 fl (7.4-10.4); MONOCYTES % 5.7 % (2.0-8.0); PLATELET 141 x1000/uL (130-400); RED BLOOD CELL COUNT 3.44 mill/uL (4.7-6.1); RED CELL DISTRIBUTION WIDTH 17.2 % (11.6-14.6)
[2019-10-28] MEDS: METOCLOPRAMIDE HCL 10MG/2ML VIAL IV SCH ×3 (06:16→21:17)
[2019-10-28] MEDS: DEXT 5%/0.2% NACL 1,000 ML IV SCH ×2 (06:17→17:15)
[2019-10-28 06:45] LABS: CHLORIDE 113 mEq/L (98-107)
[2019-10-28 06:57] LABS: PHOSPHORUS 2.4 mg/dL (2.5-4.9)
[2019-10-28] MEDS: THIAMINE HCL 100MG TABLET PO SCH (09:34)
[2019-10-28] MEDS: FOLIC ACID 1MG TABLET PO SCH (09:35)
[2019-10-28] MEDS: AMLODIPINE 2.5MG TABLET NG SCH ×2 (09:35→21:12)
[2019-10-28] MEDS: ENOXAPARIN 30MG/0.3ML SYR SUBCUT SCH ×2 (09:35→19:51)
[2019-10-28] MEDS: PANTOPRAZOLE SODIUM 40 MG/VIAL IV SCH (09:35)
[2019-10-28] MEDS: LEVETIRACETAM 1000MG/100ML 100 ML IV SCH ×2 (09:35→21:11)
[2019-10-28] MEDS: MULTIVITAMINS,THER W-MINERALS TABLET PO SCH (09:35)
[2019-10-28] MEDS: CEFEPIME 2,000 MG in DEXT 5% WATER 100 ML IV SCH (16:39)
[2019-10-29] VITALS (45 sets, daily range): BP systolic 98–140; BP diastolic 57–83
[2019-10-29] MEDS: DEXT 5%/0.2% NACL 1,000 ML IV SCH ×3 (03:15→23:42)
[2019-10-29] MEDS: BLOOD SUGAR DIAGNOSTIC STRIP TEST SCH ×5 (06:00→23:42)
[2019-10-29] MEDS: INSULIN LISPRO 100 UNITS/ML SUBCUT SCH ×4 (06:00→18:00)
[2019-10-29 06:08] LABS: EOSINOPHILS % 0.9 % (0.0-5.0); HEMATOCRIT. 28.6 % (42.0-52.0); HEMOGLOBIN. 8.8 g/dL (14.0-18.0); LYMPHOCYTES % 9.2 % (20.0-50.0); MEAN CORPUSCULAR HEMOGLOBIN 25.7 pg (28.0-32.0); MEAN CORPUSCULAR VOLUME 83.6 fL (80.0-94.0); MEAN PLATELET VOLUME 11.4 fl (7.4-10.4); MONOCYTES % 6.4 % (2.0-8.0); NEUTROPHILS % 83.5 % (40.0-76.0); PLATELET 155 x1000/uL (130-400); RED BLOOD CELL COUNT 3.42 mill/uL (4.7-6.1); RED CELL DISTRIBUTION WIDTH 17.4 % (11.6-14.6)
[2019-10-29] MEDS ORDERED: BUPIVACAINE HCL/PF 0.5% (5MG/ML) 10ML ONE (07:12)
[2019-10-29] MEDS ORDERED: LIDOCAINE HCL 1% 20ML VIAL (Pyxis) INJ ONE (07:12)
[2019-10-29] MEDS: METOCLOPRAMIDE HCL 10MG/2ML VIAL IV SCH ×3 (07:24→21:14)
[2019-10-29] MEDS ORDERED: ROCURONIUM BROMIDE 10MG/ML VIAL 5ML IV ONE (08:51)
[2019-10-29] MEDS ORDERED: FENTANYL CITRATE/PF 50MCG/ML 2ML VIAL ONE (08:52)
[2019-10-29] MEDS ORDERED: MIDAZOLAM HCL 2 MG/2 ML VIAL ONE (08:52)
[2019-10-29] MEDS ORDERED: VECURONIUM BROMIDE 10 MG/VIAL IV ONE (08:54)
[2019-10-29] MEDS ORDERED: SODIUM CHLORIDE 0.9% 10ML VIAL ONE (08:54)
[2019-10-29] MEDS: PANTOPRAZOLE SODIUM 40 MG/VIAL IV SCH (10:23)
[2019-10-29] MEDS: THIAMINE HCL 100MG TABLET PO SCH (10:23)
[2019-10-29] MEDS: LEVETIRACETAM 1000MG/100ML 100 ML IV SCH ×2 (10:23→21:15)
[2019-10-29] MEDS: FOLIC ACID 1MG TABLET PO SCH (10:23)
[2019-10-29] MEDS: MULTIVITAMINS,THER W-MINERALS TABLET PO SCH (10:23)
[2019-10-29] MEDS: AMLODIPINE 2.5MG TABLET NG SCH ×2 (10:24→21:00)
[2019-10-29] MEDS: CEFEPIME 2,000 MG in DEXT 5% WATER 100 ML IV SCH (16:48)
[2019-10-29 18:34] LABS: CHLORIDE 110 mEq/L (98-107)
[2019-10-29 18:40] LABS: PHOSPHORUS 2.9 mg/dL (2.5-4.9)
[2019-10-29] MEDS ORDERED: POTASSIUM CHLORIDE 20MEQ/PACKET PO NR (19:00)
[2019-10-29] MEDS ORDERED: MAGNESIUM 1 G PREMIX 100 ML IV NR ×2 (19:00→22:00)
[2019-10-29] MEDS ORDERED: MAGNESIUM 1 G PREMIX 100 ML IV ONE (19:06)
[2019-10-30] VITALS (57 sets, daily range): BP systolic 99–138; BP diastolic 51–104
[2019-10-30] MEDS: INSULIN LISPRO 100 UNITS/ML SUBCUT SCH ×4 (06:00→17:11)
[2019-10-30] MEDS: METOCLOPRAMIDE HCL 10MG/2ML VIAL IV SCH ×3 (06:06→21:23)
[2019-10-30] MEDS: BLOOD SUGAR DIAGNOSTIC STRIP TEST SCH ×3 (06:06→17:11)
[2019-10-30 06:16] LABS: PARTIAL THROMBOPLASTIN TIME 29.6 sec (23.4-31.0); PROTHROMBIN TIME 10.3 sec (9.6-11.0)
[2019-10-30 06:26] LABS: HEMATOCRIT. 25.8 % (42.0-52.0); HEMOGLOBIN. 8.1 g/dL (14.0-18.0); LYMPHOCYTES % 7.6 % (20.0-50.0); MEAN CORPUSCULAR HEMOGLOBIN 26.1 pg (28.0-32.0); MEAN CORPUSCULAR VOLUME 82.8 fL (80.0-94.0); MONOCYTES % 6.7 % (2.0-8.0); NEUTROPHILS % 84.7 % (40.0-76.0); PLATELET 120 x1000/uL (130-400); RED BLOOD CELL COUNT 3.12 mill/uL (4.7-6.1)
[2019-10-30 06:27] LABS: CHLORIDE 110 mEq/L (98-107)
[2019-10-30] MEDS: THIAMINE HCL 100MG TABLET PO SCH (08:46)
[2019-10-30] MEDS: PANTOPRAZOLE SODIUM 40 MG/VIAL IV SCH (08:46)
[2019-10-30] MEDS: FOLIC ACID 1MG TABLET PO SCH (08:46)
[2019-10-30] MEDS: AMLODIPINE 2.5MG TABLET NG SCH ×2 (08:47→21:00)
[2019-10-30] MEDS: MULTIVITAMINS,THER W-MINERALS TABLET PO SCH (08:47)
[2019-10-30] MEDS: LEVETIRACETAM 1000MG/100ML 100 ML IV SCH ×2 (08:48→21:23)
[2019-10-30] MEDS: DEXT 5%/0.2% NACL 1,000 ML IV SCH ×2 (10:07→19:34)
[2019-10-30] MEDS: ENOXAPARIN 30MG/0.3ML SYR SUBCUT SCH ×2 (10:12→21:00)
[2019-10-30] MEDS: CEFEPIME 2,000 MG in DEXT 5% WATER 100 ML IV SCH (16:19)
[2019-10-30] MEDS ORDERED: FENTANYL CITRATE/PF 50MCG/ML 2ML VIAL ONE (17:41)
[2019-10-30] MEDS ORDERED: MIDAZOLAM HCL 5 MG/5 ML VIAL ONE (17:41)
[2019-10-30] MEDS ORDERED: MIDAZOLAM HCL 5 MG/5 ML VIAL IV PRN (18:12)
[2019-10-31] VITALS (42 sets, daily range): BP systolic 105–134; BP diastolic 60–79
[2019-10-31] MEDS ORDERED: METOCLOPRAMIDE HCL 10MG/2ML VIAL IV SCH
[2019-10-31] MEDS: BLOOD SUGAR DIAGNOSTIC STRIP TEST SCH ×5 (00:37→23:30)
[2019-10-31] MEDS: METOCLOPRAMIDE HCL 10MG/2ML VIAL IV SCH ×4 (03:56→21:47)
[2019-10-31] MEDS: DEXT 5%/0.2% NACL 1,000 ML IV SCH ×2 (05:10→21:50)
[2019-10-31] MEDS: INSULIN LISPRO 100 UNITS/ML SUBCUT SCH ×5 (05:30→23:31)
[2019-10-31 06:54] LABS: BASOPHILS % 0.2 % (0.0-2.0); EOSINOPHILS % 0.7 % (0.0-5.0); HEMATOCRIT. 26.9 % (42.0-52.0); HEMOGLOBIN. 8.3 g/dL (14.0-18.0); LYMPHOCYTES % 8.5 % (20.0-50.0); MEAN CORPUSCULAR HEMOGLOBIN 26.3 pg (28.0-32.0); MEAN CORPUSCULAR VOLUME 84.6 fL (80.0-94.0); MONOCYTES % 6.8 % (2.0-8.0); NEUTROPHILS % 83.8 % (40.0-76.0); RED BLOOD CELL COUNT 3.18 mill/uL (4.7-6.1); RED CELL DISTRIBUTION WIDTH 16.8 % (11.6-14.6)
[2019-10-31 07:04] LABS: CHLORIDE 112 mEq/L (98-107)
[2019-10-31 07:37] LABS: PHOSPHORUS 3.1 mg/dL (2.5-4.9)
[2019-10-31 08:02] LABS: MEAN PLATELET VOLUME 10.8 fl (7.4-10.4); PLATELET 134 x1000/uL (130-400)
[2019-10-31] MEDS: THIAMINE HCL 100MG TABLET PO SCH (10:00)
[2019-10-31] MEDS: PANTOPRAZOLE SODIUM 40 MG/VIAL IV SCH (10:00)
[2019-10-31] MEDS: FOLIC ACID 1MG TABLET PO SCH (10:00)
[2019-10-31] MEDS: MULTIVITAMINS,THER W-MINERALS TABLET PO SCH (10:00)
[2019-10-31] MEDS: AMLODIPINE 2.5MG TABLET NG SCH ×2 (10:01→21:48)
[2019-10-31] MEDS: LEVETIRACETAM 1000MG/100ML 100 ML IV SCH ×2 (10:01→21:47)
[2019-10-31] MEDS: ENOXAPARIN 30MG/0.3ML SYR SUBCUT SCH ×2 (10:01→21:47)
[2019-10-31] MEDS ORDERED: MAGNESIUM 1 G PREMIX 100 ML IV NR (22:30)
[2019-11-01] VITALS (11 sets, daily range): BP systolic 116–140; BP diastolic 60–86
[2019-11-01] MEDS: METOCLOPRAMIDE HCL 10MG/2ML VIAL IV SCH ×3 (03:58→17:18)
[2019-11-01] MEDS: INSULIN LISPRO 100 UNITS/ML SUBCUT SCH ×3 (06:00→18:00)
[2019-11-01] MEDS: BLOOD SUGAR DIAGNOSTIC STRIP TEST SCH ×3 (06:00→18:55)
[2019-11-01 06:02] LABS: BASOPHILS % 0.3 % (0.0-2.0); EOSINOPHILS % 0.9 % (0.0-5.0); HEMATOCRIT. 23.8 % (42.0-52.0); HEMOGLOBIN. 7.7 g/dL (14.0-18.0); LYMPHOCYTES % 9.4 % (20.0-50.0); MEAN CORPUSCULAR HEMOGLOBIN 26.5 pg (28.0-32.0); MEAN CORPUSCULAR VOLUME 82.4 fL (80.0-94.0); MEAN PLATELET VOLUME 11.6 fl (7.4-10.4); MONOCYTES % 7.6 % (2.0-8.0); NEUTROPHILS % 81.8 % (40.0-76.0); PLATELET 143 x1000/uL (130-400); RED BLOOD CELL COUNT 2.89 mill/uL (4.7-6.1); RED CELL DISTRIBUTION WIDTH 17.1 % (11.6-14.6)
[2019-11-01 06:54] LABS: CHLORIDE 105 mEq/L (98-107)
[2019-11-01 07:02] LABS: PHOSPHORUS 3.2 mg/dL (2.5-4.9)
[2019-11-01] MEDS: ENOXAPARIN 30MG/0.3ML SYR SUBCUT SCH (09:39)
[2019-11-01] MEDS: FOLIC ACID 1MG TABLET PO SCH (09:39)
[2019-11-01] MEDS: LEVETIRACETAM 1000MG/100ML 100 ML IV SCH (09:39)
[2019-11-01] MEDS: MULTIVITAMINS,THER W-MINERALS TABLET PO SCH (09:40)
[2019-11-01] MEDS: THIAMINE HCL 100MG TABLET PO SCH (09:40)
[2019-11-01] MEDS: AMLODIPINE 2.5MG TABLET NG SCH (09:41)
[2019-11-01] MEDS: PANTOPRAZOLE SODIUM 40 MG/VIAL IV SCH (09:41)
[2019-11-01] MEDS ORDERED: POTASSIUM CHLORIDE 20MEQ TABLET SR PO NR (12:15)
[2019-11-01] MEDS ORDERED: MAGNESIUM 2 G PREMIX 50 ML IV NR (13:00)
== END 2019-11-01 22:04 | disposition short-term general hospital (02) | DRG 5 ==
LOC: ER 17:03 → MICUNO 18:16 → EDBEDREQ 19:14 → ENRESERV 20:14 → MICUNO 21:15 → CVICU 10-21 08:17 → 5EST 10-31 18:15
PROVIDERS: ADMIT Internal Medicine; ATTEND Internal Medicine
PROC: 5A1955Z Respiratory Ventilation, Greater than 96 Consecutive Hours (ICD-10-PCS; principal; 2019-10-15)
PROC: 0BH17EZ Insertion of Endotracheal Airway into Trachea, Via Natural or Artificial Opening (ICD-10-PCS; 2019-10-15)
PROC: 4A00X4Z Measurement of Central Nervous Electrical Activity, External Approach (ICD-10-PCS; 2019-10-18)
PROC: 5A12012 Performance of Cardiac Output, Single, Manual (ICD-10-PCS; 2019-10-18)
PROC: B54BZZA Ultrasonography of Right Lower Extremity Veins, Guidance (ICD-10-PCS; 2019-10-18)
PROC: 06HY33Z Insertion of Infusion Device into Lower Vein, Percutaneous Approach (ICD-10-PCS; 2019-10-18)
PROC: 0BH17EZ Insertion of Endotracheal Airway into Trachea, Via Natural or Artificial Opening (ICD-10-PCS; 2019-10-18)
PROC: B54MZZA Ultrasonography of Right Upper Extremity Veins, Guidance (ICD-10-PCS; 2019-10-25)
PROC: 05HY33Z Insertion of Infusion Device into Upper Vein, Percutaneous Approach (ICD-10-PCS; 2019-10-25)
PROC: 4A00X4Z Measurement of Central Nervous Electrical Activity, External Approach (ICD-10-PCS; 2019-10-28)
PROC: 0B110F4 Bypass Trachea to Cutaneous with Tracheostomy Device, Open Approach (ICD-10-PCS; 2019-10-29)
PROC: 0DH63UZ Insertion of Feeding Device into Stomach, Percutaneous Approach (ICD-10-PCS; 2019-10-30)
PROC: 0DB68ZX Excision of Stomach, Via Natural or Artificial Opening Endoscopic, Diagnostic (ICD-10-PCS; 2019-10-30)
DX: A41.9 Sepsis, unspecified organism (principal); I46.2 Cardiac arrest due to underlying cardiac condition; J69.0 Pneumonitis due to inhalation of food and vomit; G93.1 Anoxic brain damage, not elsewhere classified; J96.21 Acute and chronic respiratory failure with hypoxia; E46 Unspecified protein-calorie malnutrition; R13.10 Dysphagia, unspecified; N17.9 Acute kidney failure, unspecified; D69.6 Thrombocytopenia, unspecified; E11.22 Type 2 diabetes mellitus with diabetic chronic kidney disease; E87.0 Hyperosmolality and hypernatremia; E87.1 Hypo-osmolality and hyponatremia; E87.2 Acidosis; I50.9 Heart failure, unspecified; D64.9 Anemia, unspecified; E78.5 Hyperlipidemia, unspecified; E86.9 Volume depletion, unspecified; E87.6 Hypokalemia; F10.20 Alcohol dependence, uncomplicated; I13.0 Hypertensive heart and chronic kidney disease with heart failure and stage 1 through stage 4 chronic kidney disease, or unspecified chronic kidney disease; E87.8 Other disorders of electrolyte and fluid balance, not elsewhere classified; T38.0X5A Adverse effect of glucocorticoids and synthetic analogues, initial encounter; G40.409 Other generalized epilepsy and epileptic syndromes, not intractable, without status epilepticus; I49.3 Ventricular premature depolarization; K29.70 Gastritis, unspecified, without bleeding; N18.9 Chronic kidney disease, unspecified; N39.0 Urinary tract infection, site not specified; Z86.73 Personal history of transient ischemic attack (TIA), and cerebral infarction without residual deficits; Z99.11 Dependence on respirator [ventilator] status; Y92.89 Other specified places as the place of occurrence of the external cause; Z68.30 Body mass index [BMI] 30.0-30.9, adult
CPT/HCPCS: 36415; 36600; 70551; 71045; 71275; 74018; 76937; 80048; 80053; 80061; 80076; 80185; 80305; 80320; 81003; 82375; 82542; 82550; 82553; 82575; 82805; 82962; 83036; 83605; 83735; 83880; 84100; 84145; 84156; 84443; 84478; 84484; 85025; 85027; 85379; 86335; 87070; 87077; 87186; 88305; 88312; 88313; 93005; 93306; 93970; 94002; 94003; 94667; 97161; 99291; A6261; C1725; C9113; J0330; J0360; J0692; J1650; J1815; J1953; J2060; J2250; J2370; J2405; J2543; J2704; J2765; J2930; J3010; J3411; J3475; J3490; J7030; J7040; J7042; J7050; J7060; J7070; Q9967; A4315; G0480